=== PATIENT | male | born 1940 | race Caucasian/White ===

== ENCOUNTER → 2017-03-31 | Outpatient (CLI) | payer MEDICARE, BC ==
--- NOTE | 2017-03-31 11:51 | PE ---
EXAMINATION TYPE: PET CT fusion skull to thigh DATE OF EXAM: 03/31/2017 and 05/24/2016 CLINICAL HISTORY: 77 year-old male history of colon cancer, restaging. TECHNIQUE: Following the intravenous administration of 14.48 mCi of F-18 FDG, whole body images are performed from the skull base to the midthigh. Images are reviewed on the computer in the coronal, axial, and sagittal planes. Reconstructed rotating images are created on independent workstation and reviewed on the computer. A localization and attenuation correction CT is performed in conjunction with the PET scan. Glucose level: 122 mg/dL COMPARISON: 06/17/2016 FINDINGS: PET: Physiologic FDG uptake within the neck. The previous small 1.2 cm cavitary lesion in the anterior left upper lobe has not changed to prominen t peribronchovascular groundglass and consolidation with central maximal SUV of 3.4 versus 1.6, previ ously. Segmental areas of variable moderate to intense colonic activity likely physiologic. There are postsu rgical changes of mid sigmoid resection and re-anastomosis. Otherwise, physiologic FDG uptake within the chest, abdomen, and pelvis. ATTENUATION CORRECTION CT: Severe mucosal thickening frontal sinuses, [id number] within the ethmoid air cells, and moderat e along the floor of the right maxillary sinus. Leftward nasal septal deviation. No cervical lymphade nopathy. Left anterior chest wall injection port with catheter tip at the lower SVC. Heart is borderline enlarged without pericardial effusion. Coronary vessel calcifications are present in remarkable for coronary artery disease. Aorta is normal caliber with conventional arch vessel branching anatomy. No mediastinal lymphadenopat hy by CT size criteria. Postsurgical changes of prior right upper lobectomy. Mild diffuse bronchial wall thickening and interstitial scarring at the lung bases. No pleural effusion. Tiny hiatal hernia. No dilated small bowel, free fluid, or free air. No mesenteric or retroperitoneal lymphadenopathy seen. Moderate atherosclerotic calcifications abdominal aorta and mild within the il iac arteries. Scattered mild stool without pericolonic inflammatory change. Prostate gland is enlarged measuring 6.0 cm wide. There is moderate circumferential bladder wall thic kening. No abnormal fluid collection in the pelvis or pelvic lymphadenopathy seen. Bones: Some metallic surgical material along the right inguinal canal. Degenerative changes at the hi ps, SI joints, and mid to lower lumbar spine. Endplate spondylosis mid to lower thoracic spine. Multi level cervical spondylosis noted. IMPRESSION: 1. Previous small 1.2 cm cavitary lesion in the left upper lobe shows progression to extensive anteri or left upper lobe groundglass and consolidation. Centrally, there is borderline moderate hypermetabo lism now, maximal SUV of 3.4. While pneumonia including atypical infections is favored, the possibili ty of metastatic disease/neoplasm is not entirely excluded at this time. Correlate with patient's sym ptoms. Consider the utility of endobronchial evaluation as indicated. 2. New segmental areas of variable moderate to intense uptake throughout the colon suggests physiolog ic activity. There is otherwise no evidence for metastatic disease. 3. Prior right upper lobectomy and mid sigmoid resection. 4. Incidental findings: Moderate chronic paranasal sinus disease, CAD, tiny hiatal hernia, prostatome richard (6.0 cm wide), and circumferential bladder wall thickening probably due to chronic outlet obstru ction from BPH. Clinically correlate.
== END | disposition home or self-care (01) ==
LOC: RADPETMAIN 07:54
PROVIDERS: ATTEND Internal Medicine Hematology & Oncology
DX: C18.6 Malignant neoplasm of descending colon (principal); R91.8 Other nonspecific abnormal finding of lung field; J34.89 Other specified disorders of nose and nasal sinuses; I25.10 Atherosclerotic heart disease of native coronary artery without angina pectoris; K42.9 Umbilical hernia without obstruction or gangrene; N40.0 Benign prostatic hyperplasia without lower urinary tract symptoms; N32.89 Other specified disorders of bladder
CPT/HCPCS: 78815; A9552

== ENCOUNTER → 2017-05-25 | Outpatient (CLI) | payer MEDICARE, BC ==
--- NOTE | 2017-05-25 15:10 | CT ---
EXAMINATION TYPE: CT sinus wo con DATE OF EXAM: 05/25/2017 COMPARISON: NONE HISTORY: Sinus and facial pressure and THOMAS per patient.. Chronic sinusitis per order. CT DLP: 630 mGycm. Automated Exposure Control for Dose Reduction was Utilized. TECHNIQUE: CT scan of the sinuses is performed without contrast, axial images are obtained, coronal r eformatted images are also reviewed. FINDINGS: There is near complete opacification of the right maxillary sinus with heterogeneous partia lly calcified density seen posteriorly. There is mild mucosal thickening medially in the left maxill chetan sinus. There is partial opacification of right anterior ethmoid sinuses. There is near complete opacificatio n of bilateral frontal sinuses with mucosal thickening. There is mild to moderate mucosal thickening involving left inferior aspect of the left sphenoid sinus. The suspected surgically treated ostiomeatal complex is patent bilaterally on the coronal images. Mika al septum is slightly deviated to right of midline. Visualized portion of mastoid air cells show no abnormal opacification. The globes are intact bilate rally. Visualized portion of brain parenchyma shows generalized age-related cerebral atrophy. IMPRESSION: Acute on chronic paranasal sinus disease as detailed above.
== END | disposition home or self-care (01) ==
LOC: RADCTMAIN 14:36
PROVIDERS: ATTEND Otolaryngology
DX: J34.89 Other specified disorders of nose and nasal sinuses (principal)
CPT/HCPCS: 70486